=== PATIENT | female | born 1970 | race Caucasian/White ===

== ENCOUNTER 2020-04-15 09:50 | Emergency (ER) | payer OTHER ==
[~2020-04-15] VITALS: Wt 68.0 kg
[~2020-04-15 09:50] MED LIST: 'XANAX1 MG PO; ARIPIPRAZOLE20 MG PO; DIAZEPAM10 M1 PO; DOXEPIN HCL25 MG PO; ESTRADIOL1 MG PO; IBUPROFEN400 MG PO; KEFLEX500 MG PO; LEVOTHYROXINE0.05 M1 PO; PROVERA2.5 MG PO
[2020-04-15 10:36] LABS: BASO # 0.1 10*3/uL (0.0-0.1); BASO % 0.8 % (0.0-1.0); EOS # 0.2 10*3/uL (0.0-0.4); EOS % 1.2 % (1.0-4.0); LYMPH # 3.7 10*3/uL (1.3-4.4); LYMPH % 25.4 % (27.0-41.0); MEAN CELL VOLUME 96.6 fl (81.0-99.0); MEAN CORPUSCULAR HGB 32.8 pg (27.0-31.0); MEAN CORPUSCULAR HGB CONC 33.9 g/dl (33.0-37.0); MEAN PLATELET VOLUME 11.4 fl (9.6-12.3); MONO # 0.6 10*3/uL (0.1-1.0); MONO % 4.3 % (3.0-9.0); NEUT # 9.9 10*3/uL (2.3-7.9); NEUT % 67.6 % (47.0-73.0); PLATELET COUNT AUTOMATED 229 10*3/uL (130-400); RED BLOOD COUNT 4.76 10*6/uL (4.10-5.10); RED CELL DISTRI WIDTH 12.2 % (0-14.5); WHITE BLOOD COUNT 14.6 10*3/uL (4.8-10.8)
[2020-04-15 10:53] LABS: URINE AMPHETAMINES < 1000 (1000ng/ml); URINE BARBITURATES < 200 (200ng/ml); URINE BENZODIAZEPINES < 200 (200ng/ml); URINE CANNABINOIDS (THC) > 50 (50ng/ml); URINE COCAINE > 300 (300ng/ml); URINE METHADONE < 300 (300ng/ml); URINE OPIATES < 300 (300ng/ml)
[2020-04-15 10:54] LABS: ALBUMIN 3.6 gm/dl (3.1-4.5); ALKALINE PHOSPHATASE 135 U/L (45-117); BUN 14 mg/dl (7-24); CHLORIDE 106 mmol/L (98-107); CREATININE 0.76 mg/dL (0.55-1.02); SGOT/AST 53 IU/L (3-35); SGPT/ALT 73 U/L (12-78); SODIUM 137 mmol/L (136-145); TOTAL PROTEIN 8.2 gm/dL (6.4-8.2)
[2020-04-15 10:54] LABS: BILIRUBIN NEGATIVE (NEGATIVE); BLOOD NEGATIVE (NEGATIVE); CLARITY SL CLOUDY (CLEAR); COLOR YELLOW (YELLOW); GLUCOSE NEGATIVE (NEGATIVE); KETONE TRACE (NEGATIVE); URINE PHENCYCLIDINE < 25 (25ng/ml)
[2020-04-15 10:55] LABS: NITRITE NEGATIVE (NEGATIVE); UROBILINOGEN 0.2 E.U./dl (0.2-1.0)
[2020-04-15 10:56] LABS: ETHYL ALCOHOL < 3.0 mg/dl (<3)
[2020-04-15 11:00] LABS: LEUKO ESTERASE NEGATIVE (NEGATIVE)
[2020-04-15 11:02] LABS: BACTERIA 1+; CALCIUM OXALATE CRYSTALS TRACE; MUCOUS 1+; RBC 0-2 rbc/hpf (0-2)
[2020-04-15] MEDS ORDERED: MINIPRESS1 MG PO (11:28)
[2020-04-15] MEDS ORDERED: INVEGA6 MG PO (11:28)
[2020-04-15] MEDS ORDERED: FETZIMA40 M1 PO (11:29)
[2020-04-15] MEDS ORDERED: BUSPIRONE HCL7.5 MG PO (11:29)
[2020-04-15] MEDS ORDERED: DOXEPIN HCL50 MG PO (11:30)
[2020-04-15] MEDS ORDERED: XANAX1 MG PO (11:30)
[2020-04-15] MEDS ORDERED: VISTARIL25 MG PO (11:41)
== END 2020-04-15 11:46 | disposition home or self-care (01) ==
LOC: ED 09:50
PROVIDERS: Nurse Practitioner Family
DX: F41.9 Anxiety disorder, unspecified (principal); F31.9 Bipolar disorder, unspecified; Z79.899 Other long term (current) drug therapy; Z79.2 Long term (current) use of antibiotics

== ENCOUNTER → 2020-07-13 | Outpatient (CLI) | payer OTHER ==
[~2020-07-13] MED LIST changes: +BUSPIRONE HCL7.5 MG PO; +DOXEPIN HCL50 MG PO; +FETZIMA40 M1 PO; +INVEGA6 MG PO; +MINIPRESS1 MG PO; +VISTARIL25 MG PO; +XANAX1 MG PO
[2020-07-13 15:58] LABS: BASO # 0.1 10*3/uL (0.0-0.1); BASO % 0.6 % (0.0-1.0); EOS # 0.4 10*3/uL (0.0-0.4); EOS % 4.3 % (1.0-4.0); LYMPH # 3.8 10*3/uL (1.3-4.4); LYMPH % 37.9 % (27.0-41.0); MEAN CELL VOLUME 98.1 fl (81.0-99.0); MEAN CORPUSCULAR HGB 31.9 pg (27.0-31.0); MEAN CORPUSCULAR HGB CONC 32.6 g/dl (33.0-37.0); MEAN PLATELET VOLUME 11.8 fl (9.6-12.3); MONO # 0.4 10*3/uL (0.1-1.0); MONO % 3.7 % (3.0-9.0); NEUT # 5.3 10*3/uL (2.3-7.9); NEUT % 52.8 % (47.0-73.0); PLATELET COUNT AUTOMATED 230 10*3/uL (130-400); RED BLOOD COUNT 4.79 10*6/uL (4.10-5.10); WHITE BLOOD COUNT 10.1 10*3/uL (4.8-10.8)
[2020-07-13 16:17] LABS: ALBUMIN 3.8 gm/dl (3.1-4.5); BUN 10 mg/dl (7-24); CHLORIDE 108 mmol/L (98-107); POTASSIUM 4.2 mmol/L (3.5-5.1); SODIUM 141 mmol/L (136-145)
[2020-07-13 16:20] LABS: ALKALINE PHOSPHATASE 134 U/L (45-117); CHOLESTEROL 247 mg/dL (<200); CREATININE 0.74 mg/dL (0.55-1.02); SGOT/AST 42 IU/L (3-35); SGPT/ALT 56 U/L (12-78); T3 UPTAKE 26 % (31-39); TOTAL PROTEIN 8.3 gm/dL (6.4-8.2); TRIGLYCERIDES 175 mg/dl (<150); VLDL CHOLESTEROL 35 mg/dL (6-40)
[2020-07-13 16:28] LABS: HDL CHOLESTEROL 55 mg/dl (40-60); LDL CHOLESTEROL 157 mg/dL (9-159); THYROXINE (T4) TOTAL 7.4 ug/dl (4.8-13.9)
[2020-07-13 17:22] LABS: VITAMIN D, 25-HYDROXY 22.2 ng/mL (30-100)
== END | disposition home or self-care (01) ==
LOC: LAB 13:59
PROVIDERS: ATTEND Nurse Practitioner Family
DX: Z51.81 Encounter for therapeutic drug level monitoring (principal); Z79.899 Other long term (current) drug therapy